=== PATIENT | male | born 1960 | race Caucasian/White ===

== ENCOUNTER 2022-11-30 08:13 | Outpatient (OUT) | payer OTHER, SELFPAY ==
--- NOTE | 2022-11-30 08:22 | CT_ITS ---
The [address] [address] Patient Name: MICHAEL BROWN MRN: [id number] date: 1960 Sex: M Assigned Patient Location: CT Current Patient Location: CT Accession/Order Number: [id number] Exam Date: 11/30/2022 08:35 Report Date: 12/01/2022 07:54 At the request of: KIT VALDEZ Procedure: CT sinus wo con EXAMINATION: CT sinus wo con HISTORY: Chronic Maxillary Sinusitis J32.0 COMPARISON: No relevant comparison available. TECHNIQUE: Axial and Coronal CT images were created without and/or with IV contrast as indicated by examination type. Dose reduction techniques were achieved by using automated exposure control and/or adjustment of mA and/or kV according to patient size and/or use of iterative reconstruction technique. FINDINGS: MAXILLARY SINUSES: Trace amount of mucosal thickening within sinuses bilaterally. Infundibula are patent. No significant anomalous inferior orbital ethmoid (Gertrude) air cells. ETHMOID SINUSES: No significant mucosal thickening or fluid. Fovea ethmoidali and lamina papyracea are symmetric and intact. SPHENOID SINUSES: No significant mucosal thickening or fluid. Sphenoethmoidal recesses are patent. No bony dehiscence. FRONTAL SINUSES: Trace amount mucosal thickening on right. Frontal recesses are patent. NASAL FOSSA: Minimal leftward deviation of the nasal septum. Small elena bullosa. No paradoxical turbinates are identified. OTHER: Negative. Limited views of the skull base and orbits are unremarkable. IMPRESSION: 1. Minimal CT evidence of chronic sinusitis. Electronically authenticated by: MAEGAN DIXON Date: 12/01/2022 07:54
== END 2022-11-30 08:14 ==
LOC: CT 08:15
PROVIDERS: Visit Provider Otolaryngology
DX: J32.0 Chronic maxillary sinusitis (principal)
CPT/HCPCS: 70486